=== PATIENT | female | born 1955 | race Caucasian/White ===

== ENCOUNTER → 2017-06-22 | Outpatient (CLI) | payer BC ==
[~2017-06-22] MED LIST: FLEXERIL10 MG PO; GLYBURIDE AND M1 TA2 PO; LEVOTHYROXINE0.1 M1 PO; LISINOPRIL10 MG PO; LORTAB 5/500 501 TAB PO; MECLIZINE25 MG PO
[2017-06-22 15:57] LABS: HEMOGLOBIN 15.1 g/dL (12.2-16.2); LYMPH # 1.9 K/mm3 (0.7-4.5)
[2017-06-22 17:23] LABS: BUN 14 mg/dL (7-18)
[2017-06-22 18:19] LABS: GFR (ESTIMATED) 57 ML/MIN (59-)
== END ==
LOC: LAB 15:44
PROVIDERS: Orthopaedic Surgery
DX: G56.01 Carpal tunnel syndrome, right upper limb (principal); Z01.818 Encounter for other preprocedural examination